=== PATIENT | female | born 1995 | race Caucasian/White ===

== ENCOUNTER 2017-11-17 08:30 | Emergency (ER) | payer SELFPAY ==
[2017-11-17 08:31] VITALS: BP 127/89; PULSE 102; RESP 18; TEMP 36.4; O2SAT 97; BMI 44.8
[2017-11-17 09:34] LABS: Mucous, Urine 0 SEEN /hpf (<or=2+)
--- NOTE | 2017-11-17 09:35 | ED.VISSUMM ---
- ER Visit Summary Date of Service: 11/17/17 Chief Complaint: Abdominal pain History of Present Illness: The patient is a 22 F presenting with abdominal pain. She states this started 2 days ago. Pain is in the right upper and lower abdomen. Her last menstrual period was October 23. She is unsure if she could be . She states she had mild diarrhea before this started. She denies nausea or vomiting. Denies urinary complaints. Denies fever. Denies other symptoms. Physical Examination: Vitals are stable. Patient is afebrile. Alert no acute distress. HEENT exam is unremarkable. Neck is supple. Lungs are clear and equal bilaterally. Heart is regular rate and rhythm. Abdomen is soft right upper quadrant tenderness with no rebound or guarding Extremities are unremarkable. Skin is warm and dry. No focal neurologic deficit. Remainder of exam is unremarkable. Emergency Department Course and Treatment: Patient given IV fluids. CBC shows a white count 11.3. Chemistries unremarkable. Liver lipase are normal. HCG negative. Urinalysis shows 25-50 white blood cells, 0-5 red blood cells, 5-10 epithelial cells. On reevaluation patient continues to have pain. She states pain is more in the left lower quadrant now. She is given Toradol IV with improvement. CT abdomen pelvis shows right ovarian cyst. She is resting comfortably on reevaluation. She is given prescription for Naprosyn. She is advised to follow-up with her HYDROLOGICAL TECHNICAL OFFICER. Advised return to ED for worsening complaints. Disposition: Discharge home Impression: Right ovarian cyst, UTI This note was generated with [employer] dictation software. It may contain incorrect words, spelling, and punctuation that were not noted in review of the chart prior to signing ED Disposition - Plan for ED Patient: Chief Complaint: Abd Pain Referrals: Brigida Spaulding MD [Primary Care Provider] -
[2017-11-17 09:37] LABS: Color, Urine Yellow (Yellow); Glucose, Dipstick Normal (Normal); Ketone-Dipstick Negative (Negative); Leukocyte Esterase-Dipstick 500 /ul (Negative); Nitrite-Dipstick Negative (Negative); Occult Blood-Urine 10 /ul (Negative); Protein-Dipstick Negative (Negative); Specific Gravity, Urine 1.025 (1.002-1.030); Urine Bilirubin Dipstick Negative (Negative); Urine Clarity Sl. Cloudy (Clear); Urine Urobilinogen Normal (Normal)
[2017-11-17 09:42] LABS: Absolute Lymphocyte Count 3.12 X10^3/ul (0.83-4.51); Absolute Neutrophil Count 6.9 X10^3/uL (2.0-7.7); Basophil# 0.05 X10^3/uL; Basophil% 0.4 % (0-1); Eosinophil# 0.39 X10^3/uL; Eosinophils% 3.5 % (0-5); Hematocrit 41.9 % (37-47); Hemoglobin 14.9 g/dl (12.0-15.0); Lymphocyte # 3.12 X10^3/ul (4.0); Lymphocyte % 27.6 % (19-41); Mean Corp Hgb Conc 35.6 g/gl (32-36); Mean Corpuscular Hgb 30.3 pg (27.0-32.0); Mean Corpuscular Volume 85.2 fL (81-99); Mean Platelet Vol. 10.2 fl (6.2-12.0); Monocyte# 0.86 X10^3/uL; Monocyte% 7.6 % (0-10); Neutrophil # 6.86 X10^3/uL (2.7-7.7); Neutrophil % 60.7 % (47-70); Platelet Count 296 K/mm3 (150-450); RBC Distribution Width CV 13.1 % (11.6-14.6); RBC Distribution Width SD 40.3 fl (35.1-43.9); Red Blood Count 4.92 M/mm3 (4.2-5.4); White Blood Count 11.3 K/mm3 (4.4-11.0)
[2017-11-17 09:46] LABS: Bacteria 2+ /hpf (None Seen); POSITIVE COUNT NO; POSITIVE DIFFERENTIAL NO; POSITIVE MORPHOLOGY NO; Squamous Epithelial Cells - UA 5-10 SEEN /hpf (5-10)
[2017-11-17 09:47] LABS: Red Blood Cells-Urine 0-5 SEEN /hpf (0-5); White Blood Cells 25-50 SEEN /hpf (0-5)
[2017-11-17 09:49] LABS: AST(SGOT) 12 U/L (15-37); Alanine Aminotransfer ALT/SGPT 27 U/L (13-56); Alkaline Phosphatase 61 U/L (45-117); Anion Gap 9 (5-15); BUN 12 mg/dL (7-18); BUN/Creat Ratio 13.4 RATIO (10-20); Bilirubin, Direct 0.13 mg/dL (0.00-0.30); Calcium,Total 9.1 mg/dL (8.5-10.1); Chloride 110 mmol/L (98-107); Creatinine, Serum 0.89 mg/dL (0.55-1.02); EST Glomerular Filtration Rate 85 mL/min (>60); Est Glom Filt Rate - Afr Amer 103 mL/min (>60); Estimated Creatinine Clearance 79.75 ml/min; Globulin 3.9 g/dL (2.2-4.2); Glucose 88 mg/dL (74-106); Lipase 115 U/L (73-393); Potassium 3.8 mmol/L (3.5-5.1); Protein, Total 7.9 g/dL (6.4-8.2); Sodium Level 142 mmol/L (136-145)
[2017-11-17 09:55] LABS: Pregnancy, Serum, hCG Quali. NEGATIVE Negative (0-9 Nonpreg)
--- NOTE | 2017-11-17 10:25 | CT_ITS ---
STUDY: CT ABDOMEN AND PELVIS WITHOUT CONTRAST REASON FOR EXAM: Female, 22 years old. Sharp lower abdominal pain. The patient has a history of ovarian cysts. RADIATION DOSAGE (If Supplied By Facility): CTDIvol = ( 22.13 ) mGy, DLP = ( 1149.84 ) mGycm TECHNIQUE: Transaxial images were obtained from the dome of the diaphragm to the symphysis pubis without oral contrast, and without intravenous contrast. Sagittal and coronal images were reconstructed. Individualized dose optimization techniques were used for this CT. COMPARISON: None. FINDINGS: Minimal degree of dependent bibasilar atelectasis. The visualized portions of the heart are within normal limits. Normal liver. Normal gallbladder and extrahepatic biliary system. Normal spleen. Normal pancreas. Normal bilateral adrenal glands. Normal right kidney. Normal left kidney. Normal visualized stomach. Normal small intestine. Normal colon. The appendix is visualized and appears normal. Normal abdominal aorta. Normal inferior vena cava. There is borderline retroperitoneal lymphadenopathy with enlarged nodes no greater than 10mm in the short axis diameter. Normal urinary bladder. There is a 4.6 cm x 4.3 cm cyst in the right ovary. Follicles are seen within the left ovary. Normal abdominal wall. Normal osseous structures. CT/Abdomen/Pelvis without Cont IMPRESSION: Findings in keeping with a right ovarian cyst. Electronically Signed: Rajat Montano MD at 11:24 EDT Tel [phone], Service support ,
[2017-11-17] MEDS: Ketorolac 30 MG/ML Syringe IV (10:48)
--- NOTE | 2017-11-17 11:54 | ED.DEP ---
ED Disposition - Plan for ED Patient: Chief Complaint: Abd Pain Instructions: ED Cyst Ovarian Prescriptions: Naproxen [Naprosyn] 500 mg PO BID PRN #20 tablet Smz/Tmp Ds [Bactrim Ds] 1 tablet PO BID #6 tablet Referrals: Brigida Spaulding MD [Primary Care Provider] -
[2017-11-17 12:11] VITALS: BP 124/76; PULSE 77; RESP 14
== END 2017-11-17 12:12 | disposition home or self-care (01) ==
LOC: ED 09:03
PROVIDERS: Emergency Provider Emergency Medicine; Family Provider Pediatrics; PCP Pediatrics
DX: N83.201 Unspecified ovarian cyst, right side (principal); N39.0 Urinary tract infection, site not specified; R19.7 Diarrhea, unspecified
CPT/HCPCS: 74176; 80048; 80076; 81001; 83690; 84703; 85025; 96361; 96374; 99282; J7030; J7040

== ENCOUNTER 2018-06-12 20:10 | Emergency (ER) | payer SELFPAY ==
[2018-06-12] VITALS (10 sets, daily range): BP systolic 122–133; BP diastolic 78–94; PULSE 65–102; RESP 14–24; TEMP 37.2; O2SAT 98–100; BMI 41.9
[2018-06-12] MEDS: Ondansetron 4 MG/2 ML Vial IV (20:49)
[2018-06-12] MEDS: 0.9% Normal Saline 1,000 ML 150 ML IV (20:49)
[2018-06-12] MEDS: Morphine 4 MG/ML Syringe IV (20:49)
--- NOTE | 2018-06-12 20:56 | RAD_ITS ---
STUDY: X-RAY - MANDIBLE (COMPLETE) REASON FOR EXAM: Female, 23 years old. Patient arrived to ER with a dislocated jaw, which happened while the patient was asleep. No known injury. TECHNIQUE: 5 view(s) of the mandible were obtained. COMPARISON: None. FINDINGS: Normal mandible. The mandibular condyles are positioned anterior to the temporomandibular fossae bilaterally. The remaining visualized osseous structures are normal. The soft tissue structures are unremarkable. RAD/Mandible Min 4 Views IMPRESSION: Anterior subluxation or dislocation of the temporal mandibular joints bilaterally. No demonstrated fracture. Electronically Signed: Willy Beverly MD at 22:02 EST , Service support ,
[2018-06-12] MEDS: Propofol 200 MG/20 ML Vial IV BOLUS (21:38)
--- NOTE | 2018-06-12 21:46 | ED.VISSUMM ---
- ER Visit Summary Date of Service: 06/12/18 Chief Complaint: Dislocated jaw History of Present Illness: The patient is a 23 F who was out drinking last night. She states that she remembers having vomiting after she got home. She will get 5 AM today with left jaw pain and she is unable to close her mouth. She went back to sleep and woke at 5 PM and was still unable to close her jaw. She presents shortly after 8 PM for evaluation. Patient states she does have a popping of her jaw occasionally when she yawns, but she is never had a dislocation. No sniffing past medical history. Patient has not eaten in the past 24 hours. Physical Examination: Vital signs unremarkable. Patient sitting upright in bed no acute distress. She is unable to close her mouth. Head neck examination reveals no external sign of trauma. Mouth is held in the open position and she is unable to close. She has mild tenderness to the TMJ on the left. Heart is regular rate and rhythm. Lungs sounds clear. Abdomen is soft nontender. Test Results: [] Emergency Department Course and Treatment: Patient was given morphine, Zofran, and IV fluids. Mandible x-rays are obtained. Per my review there is no obvious sign of fracture. Images are difficult to read and I cannot definitively say whether the patient has imaging evidence of a dislocation. Patient was consented for procedural sedation. Patient was placed on personnel monitor and nasal cannula O2. Patient was sedated with 60 mg of IV propofol. Mandible was easily reduced. Patient was laughing and talking after the procedure and felt a pop in her left jaw again and she was again unable to close her mouth. Mandible was able to be easily reduced with no further propofol. At this time she will follow soft diet. Treatment Plan: [] Disposition: Discharge Impression: Mandible dislocation status post reduction This note was generated with [employer] dictation software. It may contain incorrect words, spelling, and punctuation that were not noted in review of the chart prior to signing ED Disposition - Plan for ED Patient: Chief Complaint: Other, Pain/Inj Referrals: Brigida Spaulding MD [Primary Care Provider] -
--- NOTE | 2018-06-12 21:50 | ED.DCSUM_ITS ---
- ER Visit Summary Date of Service: 06/12/18 Chief Complaint: Dislocated jaw History of Present Illness: The patient is a 23 F who was out drinking last night. She states that she remembers having vomiting after she got home. She will get 5 AM today with left jaw pain and she is unable to close her mouth. She went back to sleep and woke at 5 PM and was still unable to close her jaw. She presents shortly after 8 PM for evaluation. Patient states she does have a popping of her jaw occasionally when she yawns, but she is never had a dislocation. No sniffing past medical history. Patient has not eaten in the past 24 hours. Physical Examination: Vital signs unremarkable. Patient sitting upright in bed no acute distress. She is unable to close her mouth. Head neck examination reveals no external sign of trauma. Mouth is held in the open position and she is unable to close. She has mild tenderness to the TMJ on the left. Heart is regular rate and rhythm. Lungs sounds clear. Abdomen is soft nontender. Test Results: [] Emergency Department Course and Treatment: Patient was given morphine, Zofran, and IV fluids. Mandible x-rays are obtained. Per my review there is no obvious sign of fracture. Images are difficult to read and I cannot definitively say whether the patient has imaging evidence of a dislocation. Patient was consented for procedural sedation. Patient was placed on hospitality internship and nasal cannula O2. Patient was sedated with 60 mg of IV propofol. Mandible was easily reduced. Patient was laughing and talking after the procedure and felt a pop in her left jaw again and she was again unable to close her mouth. Mandible was able to be easily reduced with no further propofol. At this time she will follow soft diet. Treatment Plan: [] Disposition: Discharge Impression: Mandible dislocation status post reduction This note was generated with [employer] dictation software. It may contain incorrect words, spelling, and punctuation that were not noted in review of the chart prior to signing ED Disposition - Plan for ED Patient: Chief Complaint: Other, Pain/Inj Referrals: Brigida Spaulding MD [Primary Care Provider] -
--- NOTE | 2018-06-12 21:50 | ED.DEP ---
ED Disposition - Plan for ED Patient: Disposition: Home or Assisted Living Chief Complaint: Other, Pain/Inj Instructions: ED Dislocation Mandible Referrals: Brigida Spaulding MD [Primary Care Provider] - As Needed
--- OUTSIDE RECORDS SUMMARY | 2018-08-16 10:50 | XMS RPT_ITS ---
:1995 Author Organization OHIP Care Team Providers Name Role Phone Brigida Spaulding Primary Care Unavailable Elizabeth Buitrago Attending Unavailable Brigida Spaulding Primary Care Unavailable Joyce Grace Attending Unavailable PROBLEMS PROBLEMS No Problem Records FoundPROCEDURES PROCEDURES No Procedure Records FoundRESULTS RESULTS EMERGENCY DEPARTMENT Observed: 06/12/2018 Status: F Source: [place] SUMMARY 9:59 PM [facility] REPOSITORY [facility] Medical Records Department [address] [place] [address] [place] [address] Emergency Department Summary 06/12/18 2146 MR#: [id number] Acct: [id number] Name: JAYLA BERMUDEZ Rep #: [id number] : 1995 23 From: Elizabeth Buitrago MD PCP: Brigida Spaulding MD Status: REG ER - ER Visit Summary Date of Service: 06/12/18 Chief Complaint: Dislocated jaw History of Present Illness: The patient is a 23 F who was out drinking last night. She states that she remembers having vomiting after she got home. She will get 5 AM today with left jaw pain and she is unable to close her mouth. She went back to sleep and woke at 5 PM and was still unable to close her jaw. She presents shortly after 8 PM for evaluation. Patient states she does have a popping of her jaw occasionally when she yawns, but she is never had a dislocation. No sniffing past medical history. Patient has not eaten in the past 24 hours. Physical Examination: Vital signs unremarkable. Patient sitting upright in bed no acute distress. She is unable to close her mouth. Head neck examination reveals no external sign of trauma. Mouth is held in the open position and she is unable to close. She has mild tenderness to the TMJ on the left. Heart is regular rate and rhythm. Lungs sounds clear. Abdomen is soft nontender. Test Results: [] Emergency Department Course and Treatment: Patient was given morphine, Zofran, and IV fluids. Mandible x-rays are obtained. Per my review there is no obvious sign of fracture. Images are difficult to read and I cannot definitively say whether the patient has imaging evidence of a dislocation. Patient was consented for procedural sedation. Patient was placed on quality assurance monitor final and nasal cannula O2. Patient was sedated with 60 mg of IV propofol. Mandible was easily reduced. Patient was laughing and talking after the procedure and felt a pop in her left jaw again and she was again unable to close her mouth. Mandible was able to be easily reduced with no further propofol. At this time she will follow soft diet. Treatment Plan: [] Disposition: Discharge Impression: Mandible dislocation status post reduction This note was generated with Slicebooks dictation software. It may contain incorrect words, spelling, and punctuation that were not noted in review of the chart prior to signing ED Disposition - Plan for ED Patient: Chief Complaint: Other, Pain/Inj Referrals: Brigida Spaulding MD [Primary Care Provider] - What to do if you have Problems For any increased pain, shortness of breath, bleeding, nausea or vomiting, chest pain, or any unexpected problems, contact your Primary Care Provider. Call [facility] ([phone]) or report to the closest Emergency Room. Call 911 if necessary. 06/12/18 7486 <Electronically signed by Elizabeth Buitrago MD> Date Elizabeth Buitrago MD Cosigner Signature (If Indicated): Date CC: Brigida Spaulding MD DISCHARGE INSTRUCTION Observed: 06/12/2018 Status: F Source: [place] 9:53 PM [facility] REPOSITORY [facility] Medical Records Department [address] [place] [address] Discharge Instruction 06/12/182149 MR#: [id number] Acct: [id number] Name: JAYLA BERMUDEZ Rep #: [id number] : 1995 23 From: Elizabeth Buitrago MD PCP: Brigida Spaulding MD Status: REG ER ED Disposition - Plan for ED Patient: Disposition: Home or Assisted Living Chief Complaint: Other, Pain/Inj Instructions: ED Dislocation Mandible Referrals: Brigida Spaulding MD [Primary Care Provider] - As Needed What to do if you have Problems For any increased pain, shortness of breath, bleeding, nausea or vomiting, chest pain, or any unexpected problems, contact your Primary Care Provider. Call [employer] [facility] ([phone]) or report to the closest Emergency Room. Call 911 if necessary. 06/12/182152 <Electronically signed by Elizabeth Buitrago MD> Date Elizabeth Buitrago MD Cosigner Signature (If Indicated): Date CC: Brigida Spaulding MD MANDIBLE MIN 4 VIEWS Observed: 06/12/2018 Status: F Source: [place] 8:32 PM [facility] REPOSITORY [facility] Imaging Services [address] [place] [address] Mandible Min 4 Views MR#: [id number] Acct: [id number] Name: JAYLA BERMUDEZ Rep #: [id number] : 1995 F 23 From: Willy Beverly MD PCP: Brigida Spaulding MD Status: [facility] ER Study: Mandible Min 4 Views Date of Exam: 06/12/18 Exam# [id number] Ordering Dr: Elizabeth Buitrago MD STUDY: X-RAY - MANDIBLE (COMPLETE) REASON FOR EXAM: Female, 23 years old. Patient arrived to ER with a dislocated jaw, which happened while the patient was asleep. No known injury. TECHNIQUE: 5 view(s) of the mandible were obtained. COMPARISON: None. FINDINGS: Normal mandible. The mandibular condyles are positioned anterior to the temporomandibular fossae bilaterally. The remaining visualized osseous structures are normal. The soft tissue structures are unremarkable. RAD/Mandible Min 4 Views IMPRESSION: Anterior subluxation or dislocation of the temporal mandibular joints bilaterally. No demonstrated fracture. Electronically Signed: Willy Beverly MD at 22:02 EST , Service support , CC: Elizabeth Buitrago MD; Brigida Spaulding MD Ramp Flight Attendant: Signed DISCHARGE INSTRUCTION Observed: 11/17/2017 Status: F Source: [place] 11:55 AM [facility] REPOSITORY [facility] Medical Records Department [address] [place] [address] Discharge Instruction 11/17/17 1154 MR#: [id number] Acct: [id number] Name: JAYLA BERMUDEZ Rep #: [id number] : 1995 22 From: Joyce Grace MD PCP: Brigida Spaulding MD Status: REG ER ED Disposition - Plan for ED Patient: Chief Complaint: Abd Pain Instructions: ED Cyst Ovarian Prescriptions: Naproxen [Naprosyn] 500 mg PO BID PRN #20 tablet Smz/Tmp Ds [Bactrim Ds] 1 tablet PO BID #6 tablet Referrals: Brigida Spaulding MD [Primary Care Provider] - What to do if you have Problems For any increased pain, shortness of breath, bleeding, nausea or vomiting, chest pain, or any unexpected problems, contact your Primary Care Provider. Call [facility] ([phone]) or report to the closest Emergency Room. Call 911 if necessary. 11/17/17 1155 <Electronically signed by Joyce Grace MD> Date Joyce Grace MD Cosigner Signature (If Indicated): Date CC: Brigida Spaulding MD EMERGENCY DEPARTMENT Observed: 11/17/2017 Status: F Source: [place] SUMMARY 11:54 AM [facility] REPOSITORY [facility] Medical Records Department [address] [place] [address] Emergency Department Summary 11/17/17 0935 MR#: [id number] Acct: [id number] Name: JAYLA BERMUDEZ Rep #: [id number] : 1995 22 From: Joyce Grace MD PCP: Brigida Spaulding MD Status: REG ER - ER Visit Summary Date of Service: 11/17/17 Chief Complaint: Abdominal pain History of Present Illness: The patient is a 22 F presenting with abdominal pain. She states this started 2 days ago. Pain is in the right upper and lower abdomen. Her last menstrual period was October 23. She is unsure if she could be . She states she had mild diarrhea before this started. She denies nausea or vomiting. Denies urinary complaints. Denies fever. Denies other symptoms. Physical Examination: Vitals are stable. Patient is afebrile. Alert no acute distress. HEENT exam is unremarkable. Neck is supple. Lungs are clear and equal bilaterally. Heart is regular rate and rhythm. Abdomen is soft right upper quadrant tenderness with no rebound or guarding Extremities are unremarkable. Skin is warm and dry. No focal neurologic deficit. Remainder of exam is unremarkable. Emergency Department Course and Treatment: Patient given IV fluids. CBC shows a white count 11.3. Chemistries unremarkable. Liver lipase are normal. HCG negative. Urinalysis shows 25-50 white blood cells, 0-5 red blood cells, 5-10 epithelial cells. On reevaluation patient continues to have pain. She states pain is more in the left lower quadrant now. She is given Toradol IV with improvement. CT abdomen pelvis shows right ovarian cyst. She is resting comfortably on reevaluation. She is given prescription for Naprosyn. She is advised to follow-up with her SHREDDING MACHINE KNIFE CHANGER. Advised return to ED for worsening complaints. Disposition: Discharge home Impression: Right ovarian cyst, UTI This note was generated with Slicebooks dictation software. It may contain incorrect words, spelling, and punctuation that were not noted in review of the chart prior to signing ED Disposition - Plan for ED Patient: Chief Complaint: Abd Pain Referrals: Brigida Spaulding MD [Primary Care Provider] - What to do if you have Problems For any increased pain, shortness of breath, bleeding, nausea or vomiting, chest pain, or any unexpected problems, contact your Primary Care Provider. Call [facility] ([phone]) or report to the closest Emergency Room. Call 911 if necessary. 11/17/17 1154 <Electronically signed by Joyce Grace MD> Date Joyce Grace MD Cosigner Signature (If Indicated): Date CC: Brigida Spaulding MD ABDOMEN/PELVIS WITHOUT Observed: 11/17/2017 Status: F Source: [place] CONT 10:26 AM [facility] REPOSITORY [facility] Imaging Services [address] [place] [address] Abdomen/Pelvis without Cont MR#: [id number] Acct: [id number] Name: JAYLA BERMUDEZ Rep #: [id number] : 1995 F 22 From: Rajat Montano MD PCP: Brigida Spaulding MD Status: REG ER Study: Abdomen/Pelvis without Cont Date of Exam: 11/17/17 Exam# [id number] Ordering Dr: Joyce Grace MD STUDY: CT ABDOMEN AND PELVIS WITHOUT CONTRAST REASON FOR EXAM: Female, 22 years old. Sharp lower abdominal pain. The patient has a history of ovarian cysts. RADIATION DOSAGE (If Supplied By Facility): CTDIvol = ( 22.13 ) mGy, DLP = ( 1149.84 ) mGycm TECHNIQUE: Transaxial images were obtained from the dome of the diaphragm to the symphysis pubis without oral contrast, and without intravenous contrast. Sagittal and coronal images were reconstructed. Individualized dose optimization techniques were used for this CT. COMPARISON: None. FINDINGS: Minimal degree of dependent bibasilar atelectasis. The visualized portions of the heart are within normal limits. Normal liver. Normal gallbladder and extrahepatic biliary system. Normal spleen. Normal pancreas. Normal bilateral adrenal glands. Normal right kidney. Normal left kidney. Normal visualized stomach. Normal small intestine. Normal colon. The appendix is visualized and appears normal. Normal abdominal aorta. Normal inferior vena cava. There is borderline retroperitoneal lymphadenopathy with enlarged nodes no greater than 10mm in the short axis diameter. Normal urinary bladder. There is a 4.6 cm x 4.3 cm cyst in the right ovary. Follicles are seen within the left ovary. Normal abdominal wall. Normal osseous structures. CT/Abdomen/Pelvis without Cont IMPRESSION: Findings in keeping with a right ovarian cyst. Electronically Signed: Rajat Montano MD at 11:24 EDT Tel [phone], Service support , CC: Joyce Grace MD; Brigida Spaulding MD Ramp Flight Attendant: Signed URINALYSIS, COMPLETE Collected: 11/17/2017 Status: F Source: [place] 9:25 AM [facility] REPOSITORY Order Comment: Order Date: 11/17/17 How was Urine Obtained? CLEAN CATCH TYPE CODE TESTS RESULT OUT OF RANGE REFERENCE UNITS LAB L400.3000 Yellow COLOR Normal Yellow LAB L400.3050 Clear Normal CLARITY Sl. Cloudy LAB L400.3200 Normal mg/dl Normal GLUCOSE, UR Normal LAB L400.3300 Negative mg/dL Normal BILIRUBIN URINE Negative LAB L400.3400 Negative mg/dl Normal KETONE UR Negative LAB L400.3465 1.002-1.030 Normal SP.GR. DIPSTX 1.025 LAB L400.3550 5.0 - 8.0 pH UR Normal 5.0 LAB L400.3600 Negative mg/dl PROT Normal DIPSTX Negative LAB L400.3700 Normal mg/dl Normal UROBILI Normal LAB L400.3750 Negative Normal NITRITE UR Negative LAB L400.3780 Negative /ul High 10 OCCULT BLOOD-UR LAB L400.3800 Negative /ul High LEUK ESTERASE 500 LAB L400.4050 0-5 /hpf WBC Normal 25-50 SEEN LAB L400.4100 0-5 /hpf Normal RBC-UA 0-5 SEEN LAB L400.4150 5-10 /hpf SQUAM Normal EPI 5-10 SEEN LAB L400.4300 None Seen /hpf 2+ Normal BACTERIA LAB L400.4350 <or=2+ /hpf 0 Normal MUCUS, URINE SEEN Performed By: #### L400.0001 #### [facility] [address] [place], [address] CBC W/DIFF, AUTOMATED Collected: 11/17/2017 Status: F Source: [place] 9:25 AM [facility] REPOSIT[facility] TYPE CODE TESTS RESULT OUT OF RANGE REFERENCE UNITS LAB L100.1000 4.4-11.0 K/mm3 High WBC 11.3 LAB L100.1200 4.2-5.4 M/mm3 Normal RBC 4.92 LAB L100.1300 12.0-15.0 g/dl Normal HGB 14.9 LAB L100.1400 37-47 % Normal HCT 41.9 LAB L100.1500 81-99 fL Normal MCV 85.2 LAB L100.1600 27.0-32.0 pg Normal MCH 30.3 LAB L100.1700 32-36 g/gl Normal MCHC 35.6 LAB L100.1810 11.6-14.6 % Normal RDW CV 13.1 LAB L100.1820 35.1-43.9 fl Normal RDW SD 40.3 LAB L100.1900 150-450 K/mm3 Normal PLT 296 LAB L100.2000 6.2-12.0 fl Normal MPV 10.2 LAB L100.2100 47-70 % Normal NEUT% 60.7 LAB L100.2200 19-41 % Normal LY% 27.6 LAB L100.2300 0-10 % Normal MONO% 7.6 LAB L100.2400 0-5 % Normal EO% 3.5 LAB L100.2500 0-1 % Normal BASO% 0.4 LAB L100.2550 0.0-0.9 % Normal IM GRAN % 0.200 Result Comment: IG% - Immature Granulocytes (promyelocytes, myelocytes and metamyelocytes) > 1% indicates that a LEFT SHIFT is Present. LAB L100.2620 2.0-7.7 X10 3/uL Normal Absolute Neut 6.9 LAB L100.2720 0.83-4.51 X10 3/ul Normal Absolute Lymph 3.12 Performed By: #### L100.0100 #### [facility] [address] [place], [address] BASIC METABOLIC Collected: 11/17/2017 Status: F Source: [place] PROFILE (BMP) 9:25 AM [facility] REPOSITORY TYPE CODE TESTS RESULT OUT OF RANGE REFERENCE UNITS LAB L501.0100 74-106 mg/dL Normal GLU 88 Result Comment: Please note revised GLUCOSE reference range effective 2017. LAB L501.1000 7-18 mg/dL Normal BUN 12 LAB L501.1100 0.55-1.02 mg/dL Normal CREAT,SERUM 0.89 Result Comment: The validity of the calculated GFR AND GFRAA in patients over 70 years has not been determined. Clinical correlation is essential. LAB L501.1110 >60 mL/min Normal EST GFR 85 Result Comment: Non- GFR Calc LAB L501.1115 >60 mL/min Normal EST GFR - AA 103 Result Comment: GFR Calc LAB L501.1255 ml/min Normal Estimated CRCL 79.75 LAB L501.1300 10-20 RATIO Normal BUN/CRE 13.4 LAB L501.2200 8.5-10 mg/dL Normal .1 CA 9.1 LAB L501.5300 136-14 mmol/L Normal 5 NA 142 LAB L501.5600 3.5-5. mmol/L Normal 1 K 3.8 LAB L501.5900 98-107 mmol/L High CL 110 LAB L501.6100 21.0-3 mmol/L Normal 2.0 CO2 23.0 LAB L501.6200 5-15 Normal GAP 9 Performed By: #### L500.2500, L500.3400, L501.2450 #### [facility] [address] [place], [place], [id number] LIVER PROFILE Collected: 11/17/2017 Status: F Source: [place] 9:25 AM [facility] REPOSIT[facility] TYPE CODE TESTS RESULT OUT OF RANGE REFERENCE UNITS LAB L501.1500 6.4-8.2 g/dL Normal T PROT 7.9 LAB L501.1800 3.2-5.0 g/dL Normal ALB 4.0 LAB L501.1950 2.2-4.2 g/dL Normal GLOB 3.9 LAB L501.4100 15-37 U/L Low AST 12 LAB L501.4305 45-117 U/L Normal ALK P 61 LAB L501.4405 13-56 U/L Normal ALT 27 LAB L501.4600 0.20-1.00 mg/dL Normal T BILI 0.50 LAB L501.4700 0.00-0.30 mg/dL Normal D BILI 0.13 Performed By: #### L500.2500, L500.3400, L501.2450 #### [facility] [address] [facility] [place], [place], [id number] LIPASE Collected: 11/17/2017 Status: F Source: [place] 9:25 AM [facility] REPOS[facility] TYPE CODE TESTS RESULT OUT OF RANGE REFERENCE UNITS LAB L501.2450 73-393 U/L Normal LIPASE 115 Performed By: #### L500.2500, L500.3400, L501.2450 #### [facility] [address] [facility] [place], [address] ,SERUM,HCG QUALI. Collected: Status: F Source: [place] 11/17/2017 9:25 AM [facility] REPOSIT[facility] TYPE CODE TESTS RESULT OUT OF REFERENCE UNITS RANGE LAB L700.7000 0-9 Nonpreg Negative Normal HCGSQUAL NEGATIVE LAB L700.6700 =>Qualitative mIU/mL Normal HCG Qual < 1 triggr Performed By: #### L700.6800 #### [facility] [address] [place], [address] ALLERGIES ALLERGIES DATE TYPE / CODE NAME / CODE REACTION SEVERITY SOURCE 06/12/2018 Drug No Known Unknown [facility] Allergy/4160 Allergies/F00 Hospital 93409(SNOMED [id number](RXNOR Repository CT) M) ENCOUNTERS ENCOUNTERS ADMIT/DISCHARGE ACCOUNT ADMITTING ENCOUNTER LOCATION SOURCE NUMBER CLASS 06/12/2018/ [id number] Emergency [facility] ing:ED Repository 11/17/2017/ [id number] Emergency [facility] ing:ED Repository PAYERS PAYERS ENCOUNTER GUARANTOR PAYER SUBSCRIBER SOURCE 06/12/2018 JAYLA S Primary NOT GIVENUNK [place] [id number] Insurance:SELF PAY [facility] [id number]: [phone] Number: Effective Repository [phone] () Date:2018-06-12 11/17/2017 Jayla S Primary NOT GIVENUNK [place] [id number] SPINK Insurance:SELF PAY [facility] [id number]: [phone] Number: Effective Repository [phone] () Date:2017-11-17
== END 2018-06-12 22:02 | disposition home or self-care (01) ==
PROVIDERS: Emergency Provider Emergency Medicine; Family Provider Pediatrics; PCP Pediatrics
DX: S03.03XA Dislocation of jaw, bilateral, initial encounter (principal); X58.XXXA Exposure to other specified factors, initial encounter; Y93.9 Activity, unspecified; Y92.9 Unspecified place or not applicable; Y99.9 Unspecified external cause status
CPT/HCPCS: 21480; 70110; 96361; 96374; 96375; 99285; J7030; A4216; J2405

== ENCOUNTER 2019-12-01 22:37 | Emergency (ER) | payer OTHER, MEDICAID, SELFPAY ==
[2018-06-12 20:11] VITALS: BMI 41.9
[2019-12-01 22:38] VITALS: BP 125/71; PULSE 100; RESP 18; TEMP 36.6; O2SAT 97; BMI 38.2
--- NOTE | 2019-12-01 23:07 | EKG12_ITS ---
Test Reason : GEN ILLNESS Blood Pressure : / mmHG Vent. Rate : 065 BPM Atrial Rate : 065 BPM P-R Int : 140 ms QRS Dur : 080 ms QT Int : 394 ms P-R-T Axes : 063 042 045 degrees QTc Int : 409 ms Normal sinus rhythm Normal ECG Confirmed by DHIRAJ LUNA, ANAM ([id number]), map editor NICHOLAS SAMANIEGO ([id number]) on 12/05/2019 8:15:55 AM Referred By: KIMMY Confirmed By:ANAM HEARN MD
--- NOTE | 2019-12-01 23:14 | ED.RN ---
NO OLD EKGS IN MUSE
[2019-12-01] MEDS: 0.9% Normal Saline 1,000 ML 1000 ML IV (23:30)
[2019-12-01] MEDS: Ketorolac 30 MG/ML Syringe IV (23:31)
[2019-12-01 23:33] LABS: Absolute Lymphocyte Count 2.09 X10^3/uL (0.83-4.51); Absolute Neutrophil Count 4.6 X10^3/uL (2.0-7.7); Basophil# 0.04 X10^3/uL; Basophil% 0.5 % (0-1); Eosinophil# 0.27 X10^3/uL; Eosinophils% 3.6 % (0-5); Hematocrit 40.2 % (37-47); Hemoglobin 13.3 g/dL (12.0-15.0); Lymphocyte # 2.09 X10^3/ul (4.0); Lymphocyte % 27.7 % (19-41); Mean Corp Hgb Conc 33.1 g/dL (32-36); Mean Corpuscular Hgb 29.5 pg (27.0-32.0); Mean Corpuscular Volume 89.1 fL (81-99); Mean Platelet Vol. 9.9 fl (6.2-12.0); Monocyte# 0.58 X10^3/uL; Monocyte% 7.7 % (0-10); NRBC Flagged by Analyzer 0 % (0-5); Neutrophil # 4.55 X10^3/uL (2.7-7.7); Neutrophil % 60.4 % (47-70); Platelet Count 289 K/mm3 (150-450); RBC Distribution Width CV 12.8 % (11.6-14.6); RBC Distribution Width SD 41.8 fl (35.1-43.9); Red Blood Count 4.51 M/mm3 (4.2-5.4); White Blood Count 7.5 K/mm3 (4.4-11.0)
--- NOTE | 2019-12-01 23:42 | RAD_ITS ---
HISTORY: Chest pain. EXAMINATION/TECHNIQUE: XR Chest 1 View: Portable COMPARISON: None FINDINGS: Normal heart size. No focal infiltrate. No vascular congestion or pleural effusion. No pneumothorax. The bony thorax appears intact. RAD/Chest 1 View (Portable) IMPRESSION: No acute cardiopulmonary disease. at 0109 Reported and signed by: Bennie Kenney MD Electronically Signed: Bennie Kenney, at 1:08 EDT Tel , Service support ,
[2019-12-01 23:47] LABS: ALB/GLOB Ratio 0.9 RATIO (0.9-2.4); AST(SGOT) 7 U/L (15-37); Alanine Aminotransfer ALT/SGPT 19 U/L (13-56); Albumin, Serum 3.5 g/dL (3.2-5.0); Alkaline Phosphatase 41 U/L (45-117); Anion Gap 5 (5-15); BUN 8 mg/dL (7-18); Calcium,Total 8.7 mg/dL (8.5-10.1); Chloride 111 mmol/L (98-107); Creatinine, Serum 0.89 mg/dL (0.55-1.02); EST Glomerular Filtration Rate 84 mL/min (>60); Est Glom Filt Rate - Afr Amer 102 mL/min (>60); Estimated Creatinine Clearance 78.42 ml/min; Glucose 87 mg/dL (74-106); Lipase 64 U/L (73-393); Potassium 3.8 mmol/L (3.5-5.1); Protein, Total 7.5 g/dL (6.4-8.2); Sodium Level 142 mmol/L (136-145)
--- NOTE | 2019-12-02 00:27 | ED.DCSUM_ITS ---
History of Present Illness Chief Complaint: General Illness Informant: Patient Narrative: 24-year-old female who presents with diffuse pelvic pain. States that she has diffuse pelvic pain for the past 7 years. States that she has been seen by her PIER MASTER ASSISTANT as well as iron guardrail installer and felt like it was worse this evening. States that she also had pain into her chest. States that she has just diffuse pain across her body. States that the pain is aching in nature. No worse with movement. Has any fever, chills, nausea, vomiting, diarrhea, constipation, vaginal bleeding or discharge. Patient is currently on oral contraception. Past Medical History - Allergies and Home Meds Allergies/Adverse Reactions: Allergies No Known Allergies Allergy (Verified 06/12/18 20:13) Primary Care Physician: Care Physician,No Primary [Primary Care Provider] - Prior records reviewed: Yes Past Medical History: None Lives: Alone Smoking Status: Never smoker Alcohol: None Drugs: None Review of Systems General: Denies: Chills, Fever, Sweats Eyes: Denies: Visual changes - bilaterally, Diplopia ENT: Denies: Rhinorrhea, Sore throat Cardiovascular: Denies: Chest pain, Palpitations Respiratory: Denies: Dyspnea, Cough, Dyspnea on exertion Gastrointestinal: Reports: Abdominal pain. Denies: Nausea, Vomiting, Diarrhea, Melena, Hematochezia Genitourinary: Reports: - - pelvic pain. Denies: Dysuria, Hematuria, Frequency Musculoskeletal: Denies: Back pain, Extremity Pain Skin: Denies: Rash, Wounds Neurological: Denies: Headache, Weakness, Numbness Physical Exam Vital Signs/Narrative: Vital Signs Temp Pulse Resp BP Pulse Ox 12/01/19 22:38 97.9 F 100 18 125/71 H 97 Inital Vital Signs reviewed: Yes General: Well nourished, Well developed, No Acute Distress Head: Normocephalic, Atraumatic Eyes: Perrl, EOMI ENT: Moist mucous membranes, No rhinorrhea Neck: Supple, Nontender Cardiovascular: Regular rate, Regular rhythm, No murmurs Respiratory: No distress, CTA bilaterally, Chest nontender Abdomen: Soft, Nontender, Nondistended, Normal bowel sounds Back: Nontender, Normal Inspection Extremities: Nontender, No edema Skin: Normal color, No rash Neurological: Alert, Oriented x3, Cranial nerves II-XII grossly intact, Normal Strength, Normal Sensation Psychological: Normal affect, Normal Mood Diagnostic/Tx/Re-eval Laboratory Data 12/01/19 12/01/19 23:20 23:20 WBC 7.5 RBC 4.51 Hgb 13.3 Hct 40.2 MCV 89.1 MCH 29.5 MCHC 33.1 RDW Std Deviation 41.8 RDW Coeff of Daija 12.8 Plt Count 289 MPV 9.9 Immature Gran % (Auto) 0.100 Neut % (Auto) 60.4 Lymph % (Auto) 27.7 [place] % (Auto) 7.7 Eos % (Auto) 3.6 Baso % (Auto) 0.5 Absolute Neuts (auto) 4.6 Absolute Lymphs (auto) 2.09 Nucleated RBC % 0 Sodium 142 Potassium 3.8 Chloride 111 H Carbon Dioxide 26.0 Anion Gap 5 BUN 8 Creatinine 0.89 Estim Creat Clear Calc 78.42 Est GFR (MDRD) Af Amer 102 Est GFR (MDRD) Non-Af 84 BUN/Creatinine Ratio 9.0 L Glucose 87 Calcium 8.7 Total Bilirubin 0.30 AST 7 L ALT 19 Alkaline Phosphatase 41 L Total Protein 7.5 Albumin 3.5 Globulin 4.0 Albumin/Globulin Ratio 0.9 Lipase 64 L - Rhythm Strip Rhythm Strip: Sinus Rhythm Rate: 95 Ectopy: None - EKG Initial EKG Interpretation: Sinus Rhythm - Sinus rhythm at 65 bpm. OK interval of 140 ms. QTC of 409 ms. No evidence of ST elevation or depression at this time. - Medical Decision Making Appears well and nontoxic. This is a chronic pain for this patient. She was given Toradol as well as fluid bolus. Lab work within normal limits. X-ray and EKG normal. Patient's abdominal exam is benign. Urine shows no evidence of infection. negative. On reevaluation at 0100 patient continues to have a benign abdominal exam. It was discussed with her she will be prescribed anti-inflammatories for home and was asked to follow-up with her PIER MASTER ASSISTANT. Asked to return for new or worsening symptoms. Patient agreeable and discharged home in stable condition. ED Disposition - Plan for ED Patient: Disposition: Home or Assisted Living Diagnosis: Pelvic pain, Chest pain Instructions: ED Chest Pain Atypical Unkn Cause, ED Pelvic Pain [facility] Referrals: Ludivina Davidson MD [STAFF PHYSICIAN] -
[2019-12-02 00:32] LABS: Bacteria 0 SEEN /hpf (None Seen); Red Blood Cells-Urine 0 SEEN /hpf (0-5)
[2019-12-02 00:36] LABS: Color, Urine Yellow (Yellow); Glucose, Dipstick Normal (Normal); Ketone-Dipstick 5 mg/dl (Negative); Leukocyte Esterase-Dipstick 25 /ul (Negative); Nitrite-Dipstick Negative (Negative); Occult Blood-Urine Negative /ul (Negative); Protein-Dipstick 15 mg/dl (Negative); Specific Gravity, Urine 1.025 (1.002-1.030); Urine Bilirubin Dipstick Negative (Negative); Urine Clarity Sl. Cloudy (Clear); Urine Urobilinogen 1 mg/dl (Normal)
[2019-12-02 00:47] LABS: Internal QC Validated? YES +Cl - CLEAR BKGD; Pregnancy, Urine Negative Negative
[2019-12-02 00:48] LABS: Mucous, Urine 3+ /hpf (<or=2+); Squamous Epithelial Cells - UA 10-25 SEEN /hpf (5-10); White Blood Cells 0-5 SEEN /hpf (0-5)
[2019-12-02 01:40] VITALS: RESP 16
== END 2019-12-02 01:41 | disposition home or self-care (01) ==
PROVIDERS: Emergency Provider Emergency Medicine
DX: R10.2 Pelvic and perineal pain (principal); G89.29 Other chronic pain; R07.9 Chest pain, unspecified; Z79.3 Long term (current) use of hormonal contraceptives
CPT/HCPCS: 71045; 80053; 81001; 81025; 83690; 85025; 93005; 96361; 96374; 99283; J7030; A4216

== ENCOUNTER → 2025-03-03 | Outpatient (CLI) | payer SELFPAY ==
[2025-03-03 16:54] LABS: hCG Titer Quant., Serum 3 mIU/mL (<9 non-preg)
== END | disposition home or self-care (01) ==
LOC: LAB 15:24
PROVIDERS: Referring Provider Family Medicine; Visit Provider Family Medicine
DX: Z32.02 Encounter for pregnancy test, result negative (principal)
CPT/HCPCS: 36415; 84702